=== PATIENT | female | born 1955 | race African-American/Black ===

== ENCOUNTER 2025-08-04 10:15 | Outpatient (CLI) | payer OTHER | END 2025-08-04 10:20 | disposition home or self-care (01) | LOC: TOM 10:15 | PROVIDERS: ATTEND Orthopaedic Surgery | DX: S42.241A 4-part fracture of surgical neck of right humerus, initial encounter for closed fracture (principal) ==

== ENCOUNTER 2025-08-08 09:00 | Inpatient (IN) | payer OTHER ==
[2025-08-03 13:56] LABS: BASO % 0.4 % (0.1-1.2); EOS # 0.10 (0.04-0.54); EOS % 1.4 % (0.7-7.0); LYMPH # 1.20 (1.18-3.74); LYMPH % 16.7 % (19.3-53.1); MEAN PLATELET VOLUME 10.70 fl (9.4-12.4); MONO # 0.56 (0.24-0.82); MONO % 7.8 % (4.7-12.5); NEUT # 5.26 (1.56-6.13); NEUT % 73.4 % (34.0-71.1); RED CELL DISTRIBUTION WIDTH 12.6 % (11.6-14.4)
[2025-08-03 14:07] LABS: URINE APPEARANCE Clear; URINE BACTERIA 13.7 uL (0.0-1933); URINE BILIRRUBIN Negative (NEGATIVE); URINE BLOOD Negative; URINE COLOR Yellow; URINE EPITHELIAL CELLS 1.9 uL (0.0-38.8); URINE GLUCOSE Negative (NEGATIVE); URINE KETONE Negative (NEGATIVE); URINE LEUKOCYTE Negative; URINE NITRATE Negative; URINE PROTEIN Negative (NEGATIVE); URINE RBC 8.7 uL (0.0-20.8); URINE UROBILINOGEN 0.2 E.U./dl; URINE WBC 2.4 uL (0.0-23.2)
[2025-08-03 14:18] LABS: INR 0.98
[2025-08-03 14:20] VITALS: BP 132/80
[2025-08-03 14:20] LABS: ALT/SGPT 22.0 U/L (12-78); AST/SGOT 20.0 U/L (15-37); BILIRUBIN TOTAL 0.62 mg/dL (0.3-1.2); BUN CREA RATIO 26.0 (7.0-25.0); CREATININE SERUM 0.62 mg/dL (0.55-1.02); GFR 95.72; GLOBULINA 4.0 G/DL (2.4-3.5); GLUCOSE FASTING 150.0 mg/dL (65-100); OSMOLALITY SERUM 289.0 MOSM/KG (275-295)
[2025-08-03 14:49] LABS: COL EPI 152 SECONDS (82-175)
[2025-08-03 15:15] LABS: URINE CAST 0.00 uL (0.0-1.40)
[~2025-08-08] VITALS: Ht 154.9 cm; Wt 57.6 kg
[2025-08-08] MEDS ORDERED: CEFAZOLIN SODIUM 1,000 MG VIAL ONE ×2 (09:13→16:15)
[2025-08-08] MEDS ORDERED: EPINEPHRINE HCL/PF 1 MG/ML AMPUL ONE (10:26)
[2025-08-08] MEDS ORDERED: KETOROLAC TROMETHAMINE 60 MG VIAL IM ONE (10:27)
[2025-08-08] MEDS ORDERED: BUPIVACAINE HCL/MPF 0.5% 30ML VIAL ONE (10:27)
[2025-08-08] MEDS ORDERED: VANCOMYCIN HCL 1,000 MG VIAL ONE (10:27)
[2025-08-08] MEDS ORDERED: LIDOCAINE HCL 1%/EPINEPHRINE 20ML VIAL IJ ONE (10:28)
[2025-08-08] MEDS ORDERED: DEXAMETHASONE SODIUM PHOSPHATE 4 MG/ML VIAL ONE (10:49)
[2025-08-08] MEDS ORDERED: SODIUM CHLORIDE 0.45 % 1,000 ML IV SCH (13:15)
[2025-08-08] MEDS ORDERED: TRAMADOL HCL 50 MG TABLET PO PRN (13:15)
[2025-08-08] MEDS ORDERED: ONDANSETRON 4 MG TAB.RAPDIS PO PRN (13:15)
[2025-08-08] MEDS ORDERED: ONDANSETRON HCL 2 MG/ML VIAL IV PRN (13:15)
[2025-08-08] MEDS ORDERED: PROMETHAZINE HCL 50 MG/ML AMPUL IM PRN (13:15)
[2025-08-08] MEDS ORDERED: ACETAMINOPHEN 325 MG TABLET PO ONE (16:15)
[2025-08-08 16:56] VITALS: BP 134/82; O2SAT 95
[2025-08-08] MEDS ORDERED: ACETAMINOPHEN 325 MG TABLET PO SCH (17:00)
[2025-08-08] MEDS ORDERED: CEFAZOLIN SODIUM 1,000 MG VIAL IV SCH (17:00)
[2025-08-09] VITALS: BP 145/64; O2SAT 96
[2025-08-09 06:34] LABS: BASO % 0.2 % (0.1-1.2); EOS # 0.00 (0.04-0.54); EOS % 0.0 % (0.7-7.0); LYMPH # 1.09 (1.18-3.74); LYMPH % 10.4 % (19.3-53.1); MEAN PLATELET VOLUME 10.50 fl (9.4-12.4); MONO # 1.11 (0.24-0.82); MONO % 10.6 % (4.7-12.5); NEUT # 8.23 (1.56-6.13); NEUT % 78.4 % (34.0-71.1); RED CELL DISTRIBUTION WIDTH 12.4 % (11.6-14.4)
[2025-08-09 08:00] VITALS: BP 127/75; O2SAT 98
[2025-08-09] MEDS ORDERED: IRON FUM,PS/FOLIC/BCOMP,C NO.9 1 CAP CAPSULE PO SCH (09:00)
[2025-08-09] MEDS ORDERED: PANTOPRAZOLE SODIUM 40 MG TABLET.DR PO SCH (09:00)
[2025-08-09] MEDS ORDERED: SOD FERRIC GLUC COMPLX/SUCROSE 62.5 MG in 0.9 % SODIUM CHLORIDE 50 ML IV NR (13:00)
[2025-08-09] MEDS ORDERED: INTEGRA PLUS C1 EACH PO (14:18)
[2025-08-09 15:48] VITALS: BP 115/74; O2SAT 98
[2025-08-10] MEDS ORDERED: SENNA/DOCUSATE SODIUM 1 TAB TABLET PO SCH (09:00)
[2025-08-10] MEDS ORDERED: SOD FERRIC GLUC COMPLX/SUCROSE 62.5 MG in 0.9 % SODIUM CHLORIDE 50 ML IV SCH (09:00)
== END 2025-08-09 21:28 | disposition home or self-care (01) | DRG 494 ==
LOC: CIR.AMB 09:00 → SURG 13:53 → O/R 13:53 → SURG 15:41
PROVIDERS: ADMIT Orthopaedic Surgery; ATTEND Orthopaedic Surgery
PROC: 0LQ10ZZ Repair Right Shoulder Tendon, Open Approach (ICD-10-PCS; 2025-08-08)
PROC: 0LS30ZZ Reposition Right Upper Arm Tendon, Open Approach (ICD-10-PCS; 2025-08-08)
PROC: 0PB90ZZ Excision of Right Clavicle, Open Approach (ICD-10-PCS; 2025-08-08)
PROC: 0PSF36Z Reposition Right Humeral Shaft with Intramedullary Internal Fixation Device, Percutaneous Approach (ICD-10-PCS; principal; 2025-08-08 10:00)
DX: S42.231A 3-part fracture of surgical neck of right humerus, initial encounter for closed fracture (principal); S46.011A Strain of muscle(s) and tendon(s) of the rotator cuff of right shoulder, initial encounter; S46.211A Strain of muscle, fascia and tendon of other parts of biceps, right arm, initial encounter